=== PATIENT | female | born 1970 | race Caucasian/White ===

== ENCOUNTER 2024-03-14 20:05 | Outpatient (REF) | payer OTHER, SELFPAY ==
[2024-03-18 12:11] LABS: Age Gdln ACOG Testing Note (.); HPV Aptima Negative (Negative); IGP, Aptima HPV, rfx 16/18,45 Note (.)
== END 2024-03-14 20:06 | disposition home or self-care (01) ==
LOC: LAB 20:05
PROVIDERS: Visit Provider Physician Assistant
DX: Z01.419 Encounter for gynecological examination (general) (routine) without abnormal findings (principal)
CPT/HCPCS: 87624; G0145

== ENCOUNTER 2025-03-20 16:28 | Outpatient (REF) | payer OTHER, SELFPAY ==
[2025-03-24 12:08] LABS: Age Gdln ACOG Testing Note (.); HPV Aptima Negative (Negative); IGP, Aptima HPV, rfx 16/18,45 Note (.)
== END 2025-03-20 16:29 | disposition home or self-care (01) ==
LOC: LAB 16:28
PROVIDERS: Visit Provider Physician Assistant
DX: Z01.419 Encounter for gynecological examination (general) (routine) without abnormal findings (principal)
CPT/HCPCS: 87624; 88175